=== PATIENT | male | born 1990 | race American Indian/Alaskan Native ===

== ENCOUNTER 2016-12-13 08:52 | Emergency (ER) | payer OTHER ==
[2016-12-13 10:12] VITALS: BP 165/84
--- NOTE | 2016-12-13 10:48 | Emergency Department Report ---
ED Male HPI - General Chief complaint: Urogenital-Male Stated complaint: POSS STD Time Seen by Provider: 12/13/16 10:35 Source: patient Mode of arrival: Ambulatory Limitations: No Limitations - History of Present Illness Initial comments: 26-year-old -[place] male comes in one to be treated for STDs. Patient reports that he was exposed to an STD about 3-4 days ago. His girlfriend has been treated 2 days ago. He noticed some bumps on his penis 3 days ago. He reports that the bumps tingled a little bit but they are going away now. Denies any burning or dysuria. - Related Data Allergies Allergy/AdvReac Type Severity Reaction Status Date / Time No Known Allergies Allergy Unverified 12/13/16 10:37 ED Review of Systems ROS: Stated complaint: POSS STD Other details as noted in HPI ED Past Medical Hx - Past Medical History Previous Medical History?: Yes - Surgical History Past Surgical History?: Yes Additional Surgical History: right hip plate and right leg phill - Social History Smoking Status: Current Every Day Smoker Substance Use Type: Alcohol ED Physical Exam - General Limitations: No Limitations General appearance: alert, in no apparent distress - Head Head exam: Present: atraumatic - Eye Eye exam: Present: normal appearance, PERRL - Cardiovascular Cardiovascular Exam: Present: regular rate - GI/Abdominal GI/Abdominal exam: Present: soft. Absent: distended, tenderness - exam: Present: circumcision. Absent: testicular tenderness, urethral discharge, scrotal swelling External exam: Present: lesions (hyperpigmented lesions on the shaft of the penis). Absent: erythema ED Course Vital Signs 12/13/16 10:06 Temperature 98.2 F Pulse Rate 68 Respiratory 16 Rate Blood Pressure 165/84 O2 Sat by Pulse 97 Oximetry ED Medical Decision Making - Medical Decision Making Patient's been evaluated by this provider fast track. Discussed the patient we will treat him for gonorrhea Chlamydia and Trichomonas as well as draw blood for herpes profile. As well as's and out urine for gonorrhea and chlamydia testing. Patient verbalized understanding. Also discussed the patient about safe intercourse. The condoms are very effective against STDs. Patient verbalized understanding Critical care attestation.: If time is entered above; I have spent that time in minutes in the direct care of this critically ill patient, excluding procedure time. ED Disposition Clinical Impression: STD exposure Disposition: DISCHARGED TO HOME OR SELFCARE Is pt being admited?: No Does the pt Need Aspirin: No Condition: Stable Instructions: Sexually Transmitted Diseases (ED), Safe Sex (ED) Additional Instructions: It's very important for you to wear condoms with intercourse. I recommend have an HIV test done and this can be done at the health Department. Recommend call back in 3-7 days for your results. Referrals: PRIMARY CARE, [Primary Care Provider] - 3-5 Days [facility] [Outside] - 3-5 Days [facility] [Outside] - 3-5 Days [facility] [Outside] - 3-5 Days [facility] Dept[facility] [Outside] - 3-5 Days Forms: Work/School Release Form(ED)
[2016-12-13] MEDS: FLAGYL PO ONE (11:01)
[2016-12-13] MEDS: ROCEPHIN IM ONE (11:01)
[2016-12-13] MEDS: ZITHROMAX PO ONE (11:02)
[2016-12-13] MEDS: XYLOCAINE 1% MPF 5 mL INFILTRATI ONE (11:02)
== END 2016-12-13 11:11 | disposition home or self-care (01) ==
LOC: ED 08:52
DX: Z20.2 Contact with and (suspected) exposure to infections with a predominantly sexual mode of transmission (principal); F17.200 Nicotine dependence, unspecified, uncomplicated
CPT/HCPCS: 36415; 86695; 86696; 96372; 99282; J0696

== ENCOUNTER 2017-08-29 09:04 | Emergency (ER) | payer OTHER ==
[2017-08-29 09:43] VITALS: BP 150/90
[2017-08-29] MEDS ORDERED: FUL-GLO OP ONE (12:18)
[2017-08-29] MEDS ORDERED: TETRACAINE 0.5% OU ONE (12:20)
--- NOTE | 2017-08-29 12:38 | Emergency Department Report ---
Eye Injury/Foreign Body - [facility] Duration: 1 week Eye Location: Right Severity: Moderate Tetanus Status: Up to Date Eye Symptoms: Eye Pain: Yes, Blurred Vision: Yes, Eye Redness: Yes, Grinding/ Hammering Metal: No, Used Eye Protection: No, Contact Lens Use: No, Recalls Injury: No, Photophobia: No ED Review of Systems ROS: Stated complaint: RIGHT EYE PAIN Other details as noted in HPI Constitutional: denies: chills, fever Eyes: eye pain, eye discharge, vision change ENT: denies: ear pain, throat pain Respiratory: denies: cough, shortness of breath, wheezing Cardiovascular: denies: chest pain, palpitations Endocrine: no symptoms reported Gastrointestinal: denies: abdominal pain, nausea, diarrhea Genitourinary: denies: urgency, dysuria Musculoskeletal: denies: back pain, joint swelling, arthralgia Skin: denies: rash, lesions Neurological: denies: headache, weakness, paresthesias Psychiatric: denies: anxiety, depression Hematological/Lymphatic: as per HPI ED Past Medical Hx - Past Medical History Previous Medical History?: No - Surgical History Past Surgical History?: Yes Additional Surgical History: right hip plate and right leg phill - Social History Smoking Status: Current Every Day Smoker Substance Use Type: None - Medications Home Medications: Home Medications Medication Instructions Recorded Confirmed Last Taken Type Cetirizine HCl [Zyrtec] 10 mg PO DAILY #30 tablet 08/29/17 Unknown Rx Ibuprofen 800 mg PO TID PRN #30 tablet 08/29/17 Unknown Rx Polymyxin B Sulf/Trimethoprim 1 drop OD QID #10 ml 08/29/17 Unknown Rx [Polytrim Eye Drops] Eye Injury Exam - Exam General: Vital signs noted. No distress. Alert and acting appropriately. - Visual Acuity Left Vision Acuity Degree: 20/20 Eye Exam: Right Injection, Right Purulent Discharge, Both EOMI, Neither Chemosis , Neither Abnormal Pupil, Neither Eye Foreign Body, Neither Lid Foreign Body, Neither Mucous Discharge, Neither Corneal Edema, Neither Photophobia Exam: IOP 8mm/hg eye exam EOMI, flouracene and tetracaine no corneal abrasion no foreignbody eyelid inverted and swept, eye irrigate with ns 30 cc , vision improved to 20/20 bilat at this time. Right Vision Acuity Degree: 20/40 Eye Exam: Right Injection, Right Purulent Discharge, Both EOMI, Neither Chemosis , Neither Abnormal Pupil, Neither Eye Foreign Body, Neither Lid Foreign Body, Neither Mucous Discharge, Neither Photophobia ED Course Vital Signs 08/29/17 09:16 Temperature 98.6 F Pulse Rate 68 Respiratory 18 Rate Blood Pressure 150/90 O2 Sat by Pulse 97 Oximetry ED Medical Decision Making - Medical Decision Making pt presents for right eye pain and erythema denies trauma, initial blurred vision, eye exam vision 20/40 right 20/20 left, barreto lamp no corneal abrasion no foreignbody eyelid inverted and swept eye irrigated with NS 30 cc, vision now 20/20 bilat, and IOP 8mm/hg plan; polytrim, zyrtec, ibuprofen and follow up with ophthalmology, pt verbalized agreement and understanding with discharge plan. Critical care attestation.: If time is entered above; I have spent that time in minutes in the direct care of this critically ill patient, excluding procedure time. ED Disposition Clinical Impression: Conjunctivitis Qualifiers: Conjunctivitis type: acute Acute conjunctivitis type: bacterial Laterality: right Qualified Code(s): H10.31 - Unspecified acute conjunctivitis, right eye Disposition: DC-01 TO HOME OR SELFCARE Is pt being admited?: No Does the pt Need Aspirin: No Condition: Good Instructions: Conjunctivitis (ED) Prescriptions: Cetirizine HCl [Zyrtec] 10 mg PO DAILY #30 tablet Ibuprofen 800 mg PO TID PRN #30 tablet PRN Reason: Pain Polymyxin B Sulf/Trimethoprim [Polytrim Eye Drops] 1 drop OD QID #10 ml Referrals: PEGGY GUPTA DO [Staff Physician] - 3-5 Days Forms: Work/School Release Form(ED) Time of Disposition: 12:47
== END 2017-08-29 13:00 | disposition home or self-care (01) ==
LOC: ED 09:04
DX: H10.31 Unspecified acute conjunctivitis, right eye (principal); F17.200 Nicotine dependence, unspecified, uncomplicated
CPT/HCPCS: 99282